=== PATIENT | female | born 1985 | race Caucasian/White ===

== ENCOUNTER 2016-03-20 20:53 | Emergency (ER) | payer OTHER ==
[~2016-03-20] VITALS: Ht 165.1 cm; Wt 76.0 kg
[~2016-03-20 20:53] MED LIST: FLEXERIL10 MG PO; FLEXERIL5 MG PO; NAPROSYN500 MG PO; TRAMADOL HCL50 MG PO
[2016-03-20 21:55] LABS: HEMATOCRIT 36.7 % (36.0-46.0); MCH 29.8 PG (29.0-34.0); MCHC 32.4 G/DL (30.0-36.0); MCV 91.8 FL (83-99); MEAN PLAT.VOLUME 10.9 uM^3 (9.5-12.4); PLATELET COUNT 253 K/uL (156-360); RBC DIS.WIDTH-CV 13.4 % (11.8-14.6); RBC DIS.WIDTH-SD 44.5 % (39-53); WHITE BLOOD COUNT 5.5 K/uL (4.1-10.2)
[2016-03-20 22:01] LABS: CHLORIDE 110 mEq/L (99-109); POTASSIUM 3.8 mEq/L (3.7-5.4); SODIUM 143 mEq/L (136-147)
[2016-03-20 22:02] LABS: GLUCOSE 100 mg/dL (70-99)
[2016-03-20 22:04] LABS: ANION GAP 10 MEQ/L (2-14)
[2016-03-20 22:06] LABS: GFR ESTIMATE (CALCULATED) > 59 mL/min/
[2016-03-20 22:07] LABS: TROP-I INTERPRETATION NEGATIVE; TROPONIN-I < 0.01 ng/mL (0.0-0.30); UREA NITROGEN (BUN) 12 mg/dL (9-23)
[2016-03-20] MEDS ORDERED: ATIVAN1 MG PO (22:52)
[2016-03-20 23:10] VITALS: BP 140/97
== END 2016-03-20 23:00 | disposition home or self-care (01) ==
LOC: EME 20:53
DX: R07.9 Chest pain, unspecified (principal); F41.1 Generalized anxiety disorder
CPT/HCPCS: 71020; 80048; 84484; 85027; 93005; 99281; 99284